=== PATIENT | male | born 1980 | race Asian ===

== ENCOUNTER 2022-09-19 07:24 | Emergency (ER) | payer OTHER, SELFPAY ==
[2022-09-19 07:29] VITALS: BP 177/106; PULSE 100; PULSE 101; RESP 22; TEMP 36.7; O2SAT 98
[2022-09-19 07:30] VITALS: PULSE 100; O2SAT 98
--- NOTE | 2022-09-19 07:51 | ED_ITS ---
HPI - Male Genitourinary General Chief complaint: Abdominal Pain Stated complaint: possible kidney stone Time Seen by Provider: 09/19/22 07:30 Source: patient Mode of arrival: Ambulatory Limitations: no limitations History of Present Illness HPI Narrative: This is a 41-year-old male with complaint of hematuria and dysuria without any discharge starting earlier in the week, this has improved but he is had some per sistent suprapubic sense of urgency. This morning he woke up his 1st urination of the morning was normal then he noticed some right flank pain that had resolved and then returned and had bloody urine. Had some mild dysuria, patient denies any fever or chills. No chest pain or shortness of breath, no nausea or vomiting. No issues with diarrhea or constipation. He states flank pain did not radiate to the front. No testicular pain. Patient has had a prior kidney stone in the past he states this feels similar. Patient is on lisinopril and hydrochlorothiazide for hypertension, no other daily medications. No prior surgeries. No known drug allergies. Patient denies risk for sexually bravo smitted disease. Related Data Previous Rx's Medication Instructions Recorded hydrochlorothiazide 25 mg tablet 25 mg PO DAILY #90 tabs 09/18/22 lisinopril 20 mg tablet 20 mg PO DAILY #90 tabs 09/18/22 meloxicam 7.5 mg tablet 7.5 mg PO BID PRN pain #14 tabs 09/19/22 nitrofurantoin 100 mg PO Q12H 7 days #14 caps 09/19/22 monohydrate/macrocrystals 100 mg capsule (Macrobid) oxycodone 5 mg tablet 5 mg PO Q6H PRN pain #10 tabs 09/19/22 tamsulosin 0.4 mg capsule (Flomax) 0.4 mg PO DAILY #7 caps 09/19/22 Allergies Allergy/AdvReac Type Severity Reaction Status Date / Time No Known Drug Allergies Allergy Unverified 09/18/22 07:57 Review of Systems Review of Systems ROS Unobtainable: All systems reviewed & are unremarkable except as noted in HPI and below Patient History Medical History Benign essential HTN Obesity Exam Narrative Exam Narrative: GENERAL: Alert and oriented x three, obese male in mild distress patient initially states pain was resolved and then started to have some increasing pain in the right flank during our exam. HEENT: Head normocephalic, atraumatic, EOMI, pupils reactive, face symmetric, moist mucous membranes NECK: Supple, full range of motion CARDIOVASCULAR: Regular rate and rhythm without murmurs, rubs or gallops. RESPIRATORY: Breath sounds equal bilaterally, no wheezes rales or rhonchi. ABDOMEN: Soft, nontender. Normoactive bowel sounds all 4 quadrants. No guarding or rebound, rigidity, no mass : No CVA tenderness. Male: normal external examination, no penile discharge or lesions, testicles non-tender, no inguinal hernias noted. EXTREMITIES: Normal range of motion, no clubbing or edema. Neurovascularly intact NEUROLOGICAL: Cranial nerves II through XII grossly intact. Moving all extremities SKIN: Warm, dry, no petechiae, no rashes or lesions. Initial Vital Signs Initial Vital Signs: Vital Signs Temperature 98.1 F 09/19/22 07:29 Pulse Rate 101 H 09/19/22 07:29 Respiratory Rate 22 09/19/22 07:29 Blood Pressure 177/106 H 09/19/22 07:29 Pulse Oximetry 98 09/19/22 07:29 Oxygen Delivery Method 09/19/22 07:29 Course Orders Ordered: Discontinued Medications Ketorolac Tromethamine (Ketorolac 30 Mg/Ml Vial) 15 mg IV NOW ONE Stop: 09/19/22 08:03 Last Admin: 09/19/22 08:09 Dose: 15 mg Documented By: ARNALDO Nitrofurantoin Macrocrystals (Nitrofurantoin Er 100 Mg Capsule) 100 mg PO NOW ONE Stop: 09/19/22 09:21 Last Admin: 09/19/22 09:52 Dose: 100 mg Documented By: ARNALDO Tamsulosin HCl (Tamsulosin 0.4 Mg Capsule) 0.4 mg PO NOW ONE Stop: 09/19/22 09:21 Last Admin: 09/19/22 09:52 Dose: 0.4 mg Documented By: ARNALDO Vital Signs Vital signs: Vital Signs - 8 hr 09/19/22 07:29 09/19/22 07:29 09/19/22 07:29 Temperature 98.1 F Pulse Rate 101 H 100 H Respiratory Rate 22 Blood Pressure 177/106 H 177/106 H Pulse Oximetry 98 98 Oxygen Delivery Method Room Air 09/19/22 07:30 Temperature Pulse Rate 100 H Respiratory Rate Blood Pressure Pulse Oximetry 98 Oxygen Delivery Method MDM - Male Genitourinary Lab Data Result diagrams: 09/19/22 07:50 09/19/22 07:50 Labs: Lab Results 09/19/22 09/19/22 09/19/22 Range/Units 07:50 07:50 07:59 WBC 11.3 H (4.5-11.0) X10^3/uL RBC 4.99 (4.5-5.9) X10^6/uL Hgb 15.4 (13.5-17.5) g/dL Hct 43.6 (41-53) % MCV 87.4 (80-100) fL MCH 30.9 (26-34) PG MCHC 35.4 (30-36) % RDW 13.4 (11.6-14.8) % Plt Count 419 H (150-400) X10^3/uL Neut % (Auto) 77.1 H (50-75) % Lymph % (Auto) 15.2 L (25-40) % Camp % (Auto) 6.0 (3-14) % Eos % (Auto) 0.7 L (2-4) % Baso % (Auto) 1.0 (0-2) % Neut # (Auto) 8700 H (4316-2616) /uL Lymph # (Auto) 1700 (0067-3798) /uL Camp # (Auto) 700 (0-900) /uL Eos # (Auto) 100 (0-450) /uL Baso # (Auto) 100 (0-100) /uL Sodium 137 (137-145) mmol/L Potassium 3.5 (3.4-5.1) mmol/L Chloride 99 (98-107) mmol/L Carbon Dioxide 27 (22-32) mmol/L BUN 14 (9-20) mg/dL Creatinine 0.95 (0.66-1.25) mg/dL Estimated GFR > 60 (>60) mL/min BUN/Creatinine Ratio 14.7 (6-22) Glucose 144 H (70-100) mg/dL Calcium 9.1 (8.4-10.2) mg/dL Total Bilirubin 0.9 (0.2-1.3) mg/dL AST 26 (17-59) IU/L ALT 27 (<50) IU/L Alkaline Phosphatase 141 H (38-126) U/L Total Protein 8.2 (6.3-8.2) g/dL Albumin 4.6 (3.5-5.0) g/dL Globulin 3.6 (1.7-4.1) g/dL Albumin/Globulin Ratio 1.3 (1.0-2.8) Lipase 98 (23-300) U/L Urine Color Red Urine Appearance Clear Urine pH 6.5 (4.5-8.0) Ur Specific [place] <=1.005 (1.000-1.035) Urine Protein 2+ H (Negative) Urine Glucose (UA) Negative (Negative) g/dL Urine Ketones Negative (NEGATIVE) Urine Occult Blood 3+ H (Negative) Urine Nitrate Negative (Negative) Urine Bilirubin Negative (NEGATIVE) Urine Urobilinogen 0.2 (0.2) E.U./dL Ur Leukocyte Esterase Trace H (NEGATIVE) Urine RBC 30-100/hpf H (0-5/HPF) Urine WBC 1-5/hpf (0-5/HPF) Ur Squamous Epith Cells 1-5 /hpf (0-5/HPF) Urine Bacteria None seen (None) Ur Culture Indicated? Specimen cultured Imaging Data renal US: Radiologist's Impression: Close Renal Ultrasound (Signed) Nora Mcclellanah - 09/19/22 Launch?[place] [address] Ultrasound Report Signed Patient: King Bah MR#: [id number] : 1980 Acct:[id number] Age/Sex: 41 / M Date of Service: 09/19/22 Loc: ED Accession Number: [id number] ?? Procedure: US renal complete Ordering Provider: Aminta Moralez D.O. PROCEDURE:? US RENAL COMPLETE ? INDICATIONS:? RIGHT FLANK PAIN. HEMATURIA AND DYSURIA ? TECHNIQUE:? Real-time scanning was performed of the kidneys and bladder, with image documentation.? ? COMPARISON:? None. ? FINDINGS:? ? Kidneys:? Kidneys are normal in size.? Right kidney measures 11.2 cm long; left kidney measures 10.5 cm long.? Right renal cortical thickness is 2.0 cm; left renal cor tical thickness is 1.9 cm.? Renal cortical echotexture is normal.? There is mild to moderate right hydronephrosis.? No left hydronephrosis.? No nephrolithiasis. ? Bladder:? Pre-void bladder volume is 111 mL.? Post-void residual is 5 mL.? Pre- void images demonstrate no intraluminal masses or stones.? On pre-void images, bilateral ureteral jets are noted with color Doppler interrogation.? (Of note, ureteral jets may not be detectable in up to 25% of cases due to insufficient differences in specific gravity between ureteral and bladder urine).? ? Miscellaneous:? No free pelvic fluid.? ? IMPRESSION:? Mild to moderate right hydronephrosis.? No renal calculi visualized. ? ? Dictated by: Natasha Mcclellan M.D. on 09/19/2022 at 9:01 ? ? Approved by: Natasha Mcclellan M.D. on 09/19/2022 at 9:02?? MDM Narrative Medical decision making narrative: This is a 41-year-old male with history of hypertension and prior kidney stones with hematuria, dysuria and right flank pain, suspect more kidney stone but UTI as on differential. Patient suspected kidney stone, patient has some right hydro no stone clearly visualized on ultrasound but not atypical. Patient's urine shows leuks but no white cells. Patient renal function, electrolytes are appropriate. Patient's pain improved with Toradol though not completely gone. He defers anything additional. Discussed would treat for UTI and stone. Patient started antibiotics, Flomax, medication for pain control. We discussed return precautions. Discussed we did not do CT today because of radiation risks but if he is worsening to return. Also discussed that if all symptoms resolve h e can stop all the medications except he should finish the antibiotics. Discharge Plan Departure Patient Disposition: Home Clinical Impression: Kidney stone on right side Instructions: DI for Kidney Stones Activity Restrictions/Additional Instructions: Follow-up with your physician for recheck. If symptoms are persisting referral for Urology is also included. You may have possibly a urinary infection I would cover you with antibiotics but suspect majority of your symptoms are from a kidney stone. Take Flomax once daily until gone Take antibiotics until completely finished. You may take meloxicam 1 tablet every 12 hours for pain. This medication is similar to ibuprofen so do not take other NSAIDs with it. You can also take Tylenol with this medicine up to a 1000 mg every 6 hours You may take 1 or 2 tablets of oxycodone every 6 hours as needed with meloxicam and ibuprofen if needed for pain management. [facility] [place]. Please return for fevers, increasing flank pain, persistent vomiting, inability urinate, black or bloody stools or other new or concerning symptoms. Prescriptions: New meloxicam 7.5 mg tablet 7.5 mg PO BID PRN (Reason: pain) Qty: 14 0RF tamsulosin [Flomax] 0.4 mg capsule 0.4 mg PO DAILY Qty: 7 0RF oxycodone 5 mg tablet 5 mg PO Q6H PRN (Reason: pain) Qty: 10 0RF nitrofurantoin monohyd/m-cryst [Macrobid] 100 mg capsule 100 mg PO Q12H 7 Days Qty: 14 0RF Rx Instructions: must administer with a meal/food No Action lisinopril 20 mg tablet 20 mg PO DAILY Qty: 90 3RF hydrochlorothiazide 25 mg tablet 25 mg PO DAILY Qty: 90 3RF Referrals: Kin Maloney DO [Primary Care Provider] - Ladan Otero MD [Physician] - Visit Report Forms: Patient Portal/API
[2022-09-19 07:53] LABS: Add Manual Diff / Slide Review NO; Basophils Absolute Auto 100 /uL (0-100); Eosinophils Absolute Auto 100 /uL (0-450); Eosinophils Percent Auto 0.7 % (2-4); Hematocrit 43.6 % (41-53); Hemoglobin 15.4 g/dL (13.5-17.5); Lymphocytes Absolute Auto 1700 /uL (1100-4500); Lymphocytes Percent Auto 15.2 % (25-40); Mean Corpuscular HGB Conc 35.4 % (30-36); Mean Corpuscular Hemoglobin 30.9 PG (26-34); Mean Corpuscular Volume 87.4 fL (80-100); Monocytes Absolute Auto 700 /uL (0-900); Neutrophils Absolute Auto 8700 /uL (1500-7000); Neutrophils Percent Auto 77.1 % (50-75); Platelet Count 419 X10^3/uL (150-400); Red Blood Cell Count 4.99 X10^6/uL (4.5-5.9); Red Cell Distribution Width 13.4 % (11.6-14.8); White Blood Cell Count 11.3 X10^3/uL (4.5-11.0)
[2022-09-19 08:02] LABS: Appearance Urine UA CLEAR; Bilirubin Urine UA NEGATIVE (NEGATIVE); Color Urine UA RED; Glucose Urine UA NEGATIVE (Negative); Ketones Urine UA NEGATIVE (NEGATIVE); Leukocyte Esterase Urine UA TRACE (NEGATIVE); Nitrite Urine UA NEGATIVE (Negative); Occult Blood Urine UA 3+ (Negative); Protein Urine UA 2+ (Negative); Specific Gravity Urine UA <=1.005 (1.000-1.035); Urobilinogen Urine UA 0.2 E.U./dL (0.2); pH Urine UA 6.5 (4.5-8.0)
--- NOTE | 2022-09-19 08:02 | DI.US.S_ITS ---
PROCEDURE: US RENAL COMPLETE INDICATIONS: RIGHT FLANK PAIN. HEMATURIA AND DYSURIA TECHNIQUE: Real-time scanning was performed of the kidneys and bladder, with image documentation. COMPARISON: None. FINDINGS: Kidneys: Kidneys are normal in size. Right kidney measures 11.2 cm long; left kidney measures 10.5 cm long. Right renal cortical thickness is 2.0 cm; left renal cortical thickness is 1.9 cm. Renal cortical echotexture is normal. There is mild to moderate right hydronephrosis. No left hydronephrosis. No nephrolithiasis. Bladder: Pre-void bladder volume is 111 mL. Post-void residual is 5 mL. Pre-void images demonstrate no intraluminal masses or stones. On pre-void images, bilateral ureteral jets are noted with color Doppler interrogation. (Of note, ureteral jets may not be detectable in up to 25% of cases due to insufficient differences in specific gravity between ureteral and bladder urine). Miscellaneous: No free pelvic fluid. IMPRESSION: Mild to moderate right hydronephrosis. No renal calculi visualized. Dictated by: Natasha Mcclellan M.D. on 09/19/2022 at 9:01 Approved by: Natasha Mcclellan M.D. on 09/19/2022 at 9:02
[2022-09-19 08:04] LABS: Alanine Aminotransferase 27 IU/L (<50); Albumin 4.6 g/dL (3.5-5.0); Albumin Globulin Ratio 1.3 (1.0-2.8); Alkaline Phosphatase 141 U/L (38-126); Aspartate Aminotransferase 26 IU/L (17-59); BUN Creatinine Ratio 14.7 (6-22); Bilirubin Total 0.9 mg/dL (0.2-1.3); Blood Urea Nitrogen 14 mg/dL (9-20); Calcium 9.1 mg/dL (8.4-10.2); Carbon Dioxide 27 mmol/L (22-32); Chloride 99 mmol/L (98-107); Estimated Glomerular Filt Rate > 60 mL/min (>60); Globulin 3.6 g/dL (1.7-4.1); Glucose 144 mg/dL (70-100); HEMOLYSIS < 15 (0-50); Lipase 98 U/L (23-300); Potassium 3.5 mmol/L (3.4-5.1); Sodium 137 mmol/L (137-145); Total Protein 8.2 g/dL (6.3-8.2)
[2022-09-19 08:07] LABS: Bacteria Urine None Seen; Culture Indicated Urine Specimen Cultured; RBC Urine 30-100/HPF (0-5/HPF); Squamous Epithelial Cell Urine 1-5 /HPF (0-5/HPF); WBC Urine 1-5/HPF (0-5/HPF)
[2022-09-19] MEDS: KETOROLAC 30 MG/ML VIAL 15 MG IV (08:09)
[2022-09-19] MEDS: TAMSULOSIN 0.4 MG CAPSULE PO (09:52)
[2022-09-19] MEDS: NITROFURANTOIN ER 100 MG CAPSULE PO (09:52)
[2022-09-19 09:53] VITALS: BP 169/88; PULSE 81; RESP 20; O2SAT 97
== END 2022-09-19 09:53 | disposition home or self-care (01) ==
PROVIDERS: Emergency Provider Emergency Medicine; PCP Family Medicine
DX: N20.0 Calculus of kidney (principal); Z87.442 Personal history of urinary calculi
CPT/HCPCS: 76770; 80053; 81001; 83690; 85025; 87086; 96374; 99284; J1885

== ENCOUNTER → 2022-09-20 16:57 | Outpatient (CLI) | payer OTHER, SELFPAY ==
[2022-09-20 17:53] LABS: Cholesterol 192 mg/dL (140-199); HDL Cholesterol 29 mg/dL (40-60); LDL Cholesterol Calculated 128 mg/dL (<100); Triglycerides 173 mg/dL (35-150)
[2022-09-20 18:24] LABS: Hemoglobin A1C% w Est Avg Glu 5.7 % (4.0-6.0)
== END ==
PROVIDERS: PCP Family Medicine; Visit Provider Family Medicine
DX: E66.9 Obesity, unspecified (principal); I10 Essential (primary) hypertension; Z68.39 Body mass index [BMI] 39.0-39.9, adult
CPT/HCPCS: 80061; 83036

== ENCOUNTER → 2023-01-12 14:42 | Outpatient (CLI) | payer OTHER, SELFPAY | PROVIDERS: PCP Family Medicine; Visit Provider Family Medicine | DX: R31.9 Hematuria, unspecified (principal) | CPT/HCPCS: 87086 ==

== ENCOUNTER → 2023-01-17 14:05 | Outpatient (CLI) | payer OTHER, SELFPAY ==
--- NOTE | 2023-01-17 14:06 | DI.CT.S_ITS ---
PROCEDURE: CT KIDNEY URETER BLADDER (KUB) INDICATIONS: Right flank pain, recurrent kidney stone TECHNIQUE: Axial sections were acquired from the lung bases to the pubic symphysis. Coronal and sagittal reformats were performed. For radiation dose reduction, the following was used: automated exposure control, adjustment of mA and/or kV according to patient size. COMPARISON: [facility], , US RENAL COMPLETE, 09/19/2022, 8:11. FINDINGS: Image quality: Excellent. Lung bases: Unremarkable. Heart: No significant findings. URINARY: Right Kidney: There is a nonobstructing 6 mm stone measuring 450 Hounsfield units. No hydronephrosis is seen. Right Ureter: No hydroureter. Left Kidney: No stones or hydronephrosis. Left Ureter: No hydroureter. Bladder: Normal wall thickness. No stones. ABDOMEN: Liver: Unremarkable. Gallbladder: Unremarkable. Biliary ducts: Unremarkable. Pancreas: Unremarkable. Spleen: Unremarkable. Adrenal Glands: Unremarkable. Stomach and Bowel: Stomach, small bowel loops, and colon are unremarkable. A normal appendix is incidentally noted. Minimal distal colonic diverticulosis is seen, without findings of active diverticulitis. Peritoneum: No abnormal intraperitoneal fluid. No free air. Ventral Wall: No hernia. Abdominal Nodes: No enlarged retroperitoneal or mesenteric lymph nodes. Vessels: Aorta and inferior vena cava are normal in size. PELVIS: Pelvic Organs: Unremarkable. Pelvic Nodes: Unremarkable. Miscellaneous: No inguinal hernias are seen. Bones: Unremarkable. IMPRESSION: Nonobstructing 6 mm right-sided kidney stone. No findings of hydronephrosis or obstructive uropathy can be seen. Additional findings: Minimal distal colonic diverticulosis, without active diverticulitis Normal appendix Dictated by: Mehrdad Obrien M.D. on 01/17/2023 at 13:42 Approved by: Mehrdad Obrien M.D. on 01/17/2023 at 13:43
== END ==
PROVIDERS: PCP Family Medicine; Referring Provider Family Medicine; Visit Provider Family Medicine
DX: N20.0 Calculus of kidney (principal)
CPT/HCPCS: 74176

== ENCOUNTER → 2023-01-30 12:27 | Outpatient (CLI) | payer OTHER, SELFPAY ==
--- NOTE | 2023-01-30 12:31 | DI.RAD.S_ITS ---
PROCEDURE: XR KUB INDICATIONS: calculus of kidney TECHNIQUE: One view of the abdomen acquired. COMPARISON: [facility], CT, CT KIDNEY URETER BLADDER (KUB), 01/17/2023, 14:06. FINDINGS: 7 mm calcification projects over the expected position of the right renal pelvis/proximal ureter. No definite left renal stone identified radiographically. No pathologically dilated gas-filled loops of bowel. IMPRESSION: 7 mm calcification projects over the expected position of the right renal pelvis/proximal ureter. Dictated by: Henry Ram M.D. on 01/31/2023 at 13:09 Approved by: Henry Ram M.D. on 01/31/2023 at 13:12
== END ==
PROVIDERS: PCP Family Medicine; Referring Provider Specialist; Visit Provider Specialist
DX: N20.0 Calculus of kidney (principal)
CPT/HCPCS: 74018

== ENCOUNTER 2023-02-16 09:12 | Day surgery (SDC) | payer OTHER, SELFPAY ==
[2023-02-08 12:21] VITALS: BMI 38.5
--- NOTE | 2023-02-16 | DI.RAD.S_ITS ---
PROCEDURE: XR KUB INDICATIONS: Right UPJ calculus TECHNIQUE: One view of the abdomen acquired. COMPARISON: [facility], CR, XR KUB, 01/30/2023, 12:28. [facility], CT, CT KIDNEY URETER BLADDER (KUB), 01/17/2023, 14:06. FINDINGS: Surgical changes and devices: None. Bowel: Bowel gas pattern is normal. Soft tissues: Overlapping stool partially obscures evaluation. No definite calcified stone is identified. Bones: No suspicious bony lesions. IMPRESSION: No definite calcified nephrolith. Overlapping stool partially obscures evaluation. Dictated by: Cruz Hermosillo M.D. on 02/16/2023 at 9:38 Approved by: Cruz Hermosillo M.D. on 02/16/2023 at 9:40
[2023-02-16 09:44] VITALS: BP 147/93; PULSE 92; RESP 12; TEMP 36.6; O2SAT 100; BMI 35.5
--- NOTE | 2023-02-16 10:26 | PM.PREOP ---
Pre-operative Note COVID-19 Criteria for continued procedure: Expected advancement of disease process, Possibility delay results in more complex future surgery or treatment, Continuing or worsening of significant or severe pain, Deterioration of the patient's condition or overall health, Delay expected to result in less-positive ultimate med/surg outcome and Non-surgical alternatives not available or appropriate per current SOC Interval Note History & Physical reviewed/Exam performed by Physician: Yes Changes to H&P: No
--- NOTE | 2023-02-16 11:02 | SUR.OPER ---
Supine on padded ESWL bed, head on pillow, arms at sides on gel pads, legs uncrossed.
[2023-02-16] MEDS: CEFAZOLIN 2 GM/100 ML PREMIX 100 ML IV (11:05)
--- NOTE | 2023-02-16 11:53 | P.OP_ITS ---
Operative Date/Time/Diagnoses Date of procedure: 02/16/23 Time of procedure: 11:45 Pre-op diagnosis: 1. 7 mm right renal calculus. 2. Intermittent right renal colic and hematuria. Post-op diagnosis: same Procedure & Clinicians Procedure: 1. Right extracorporeal shockwave lithotripsy (7.0 maximal power level x2 1500 shocks). Same procedure as scheduled: Yes Indications: 1. 7 mm right renal calculus and intermittently migrating to right ureteropelvic junction. 2. Intermittent right renal colic and gross hematuria. Surgeon: Ladan Otero Click Yes if Unassisted: No Anesthesia Type: General Operative Notes Findings: The index calculus has now repositioned itself into the left lower pole collecting system verses most recent KUB image the demonstrated the stone in the vicinity of the right UPJ/proximal ureter. Closure Type: not applicable Estimated Blood Loss (mL): 0 Blood products transfused: none Procedure in detail: The patient was positioned in supine and the above-described calculus was localized in the X, Y, and Z plane. Lithotripsy was initiated at minimal power level for 200 shocks. A 2 minute pause was then conducted. Lithotripsy was then resumed and the power level was gradually increased to a maximal 7.0. The stone and its fragments were relocalized as needed throughout the case. A total of 2500 shocks were delivered to the stone with resultant good evidence of stone fragmentation. Procedure was halted. The patient was then awakened, [facility], and then transported recovery awake and in stable condition. Complications: none Post-operative Condition: stable Disposition: PACU Plan for aftercare: Discharge home.
[2023-02-16 11:58] VITALS: BP 139/95; PULSE 114; RESP 11; TEMP 36.2; O2SAT 99
[2023-02-16 12:02] VITALS: BP 155/107; PULSE 109; RESP 11; O2SAT 98
[2023-02-16] MEDS: ONDANSETRON 4 MG/2 ML INJ IV (12:02)
[2023-02-16] MEDS: OXYCODONE IR 5 MG TABLET PO (12:02)
[2023-02-16] MEDS: fentaNYL 100 MCG/2 ML INJ IV (12:03)
[2023-02-16 12:14] VITALS: BP 166/93; PULSE 103; RESP 13; O2SAT 97
[2023-02-16] MEDS: LACTATED RINGERS 1,000 ML 21 ML IV (12:16)
== END 2023-02-16 12:25 | disposition home or self-care (01) ==
PROVIDERS: PCP Family Medicine; Referring Provider Specialist; Visit Provider Specialist
PROC: (CPT 50590; principal; 2023-02-16 10:45)
DX: N20.0 Calculus of kidney (principal)
CPT/HCPCS: 50590; 74018; J0330; J0690; J2250; J2405; J3010

== ENCOUNTER → 2023-03-13 06:55 | Outpatient (CLI) | payer OTHER, SELFPAY ==
[2023-03-13 08:39] LABS: Appearance Urine UA CLEAR; Bilirubin Urine UA NEGATIVE (NEGATIVE); Color Urine UA YELLOW; Glucose Urine UA NEGATIVE (Negative); Ketones Urine UA NEGATIVE (NEGATIVE); Leukocyte Esterase Urine UA NEGATIVE (NEGATIVE); Nitrite Urine UA NEGATIVE (Negative); Occult Blood Urine UA NEGATIVE (Negative); Protein Urine UA NEGATIVE (Negative); Urobilinogen Urine UA 0.2 E.U./dL (0.2); pH Urine UA 7.5 (4.5-8.0)
[2023-03-13 08:47] LABS: BUN Creatinine Ratio 15.2 (6-22); Blood Urea Nitrogen 14 mg/dL (9-20); Calcium 9.3 mg/dL (8.4-10.2); Calcium 9.6 mg/dL (8.4-10.2); Carbon Dioxide 33 mmol/L (22-32); Chloride 96 mmol/L (98-107); Estimated Glomerular Filt Rate > 60 mL/min (>60); Glucose 112 mg/dL (70-100); HEMOLYSIS < 15 (0-50); Potassium 3.6 mmol/L (3.4-5.1); Sodium 137 mmol/L (137-145)
[2023-03-13 09:12] LABS: Bacteria Urine None Seen; Culture Indicated Urine Cult Not Indicated; RBC Urine None Seen (0-5/HPF); Squamous Epithelial Cell Urine None Seen (0-5/HPF); WBC Urine 0-1/HPF (0-5/HPF)
[2023-03-14 00:07] LABS: Labcorp Hemoglobin (Hb) A1c 5.5 % (4.8-5.6)
[2023-03-15 09:45] LABS: Parathyroid Hormone Int 31 pg/mL (15-65)
== END ==
PROVIDERS: PCP Family Medicine; Referring Provider Specialist; Visit Provider Specialist
DX: N20.0 Calculus of kidney (principal); R31.9 Hematuria, unspecified; I10 Essential (primary) hypertension
CPT/HCPCS: 36415; 80048; 81001; 82310; 83036; 83970; 84550

== ENCOUNTER → 2023-04-13 15:05 | Outpatient (CLI) | payer OTHER, SELFPAY ==
--- NOTE | 2023-04-13 15:06 | DI.RAD.S_ITS ---
PROCEDURE: XR KUB INDICATIONS: kidney calculus TECHNIQUE: One view of the abdomen acquired. COMPARISON: [facility], CR, XR KUB, 02/16/2023, 9:22. FINDINGS: Surgical changes and devices: None. Bowel: Bowel gas pattern is normal. Soft tissues: No suspicious abdominal calcifications. Visualized solid organ contours appear normal in size. Bones: No suspicious bony lesions. IMPRESSION: No definite radiopaque renal, ureteral or bladder calculi. Of note, much of the renal fossa is obscured by overlying bowel gas and stool which does limit evaluation for stones. Dictated by: Kei Posadas [facility] Interpreted: Clemencia Diaz MD on 04/13/2023 at 15:17 Transcribed by: KATHERIN on 04/13/2023 at 15:18 Approved by: Clemencia Diaz M.D. on 04/13/2023 at 16:37
== END ==
PROVIDERS: PCP Family Medicine; Referring Provider Specialist; Visit Provider Specialist
DX: N20.0 Calculus of kidney (principal)
CPT/HCPCS: 74018

== ENCOUNTER → 2023-09-11 07:34 | Outpatient (CLI) | payer OTHER, SELFPAY ==
[2023-09-11 08:35] LABS: Add Manual Diff / Slide Review NO; Basophils Absolute Auto 100 /uL (0-100); Eosinophils Absolute Auto 100 /uL (0-450); Eosinophils Percent Auto 1.3 % (2-4); Lymphocytes Absolute Auto 2100 /uL (1100-4500); Lymphocytes Percent Auto 23.8 % (25-40); Mean Corpuscular HGB Conc 35.8 % (30-36); Mean Corpuscular Volume 89.5 fL (80-100); Monocytes Absolute Auto 600 /uL (0-900); Monocytes Percent Auto 7.2 % (3-14); Neutrophils Absolute Auto 5800 /uL (1500-7000); Neutrophils Percent Auto 66.7 % (50-75); Platelet Count 389 X10^3/uL (150-400); Red Cell Distribution Width 13.5 % (11.6-14.8); White Blood Cell Count 8.7 X10^3/uL (4.5-11.0)
[2023-09-11 08:37] LABS: Hemoglobin 15.4 g/dL (13.5-17.5)
[2023-09-11 08:51] LABS: Alanine Aminotransferase 31 IU/L (<50); Albumin 4.3 g/dL (3.5-5.0); Albumin Globulin Ratio 1.4 (1.0-2.8); Alkaline Phosphatase 83 U/L (38-126); Aspartate Aminotransferase 57 IU/L (17-59); BUN Creatinine Ratio 12.2 (6-22); Bilirubin Total 0.6 mg/dL (0.2-1.3); Blood Urea Nitrogen 11 mg/dL (9-20); Calcium 9.6 mg/dL (8.4-10.2); Carbon Dioxide 31 mmol/L (22-32); Chloride 97 mmol/L (98-107); Cholesterol 208 mg/dL (140-199); Estimated Glomerular Filt Rate > 60 mL/min (>60); Glucose 102 mg/dL (70-100); HDL Cholesterol 39 mg/dL (40-60); HEMOLYSIS < 15 (0-50); LDL Cholesterol Calculated 140 mg/dL (<100); Potassium 4.2 mmol/L (3.4-5.1); Sodium 136 mmol/L (137-145); Total Protein 7.3 g/dL (6.3-8.2); Triglycerides 145 mg/dL (35-150); Uric Acid 8.3 mg/dL (3.5-8.5)
== END ==
PROVIDERS: PCP Family Medicine; Referring Provider Family Medicine; Visit Provider Family Medicine
DX: E78.2 Mixed hyperlipidemia (principal); R82.998 Other abnormal findings in urine; I10 Essential (primary) hypertension; R73.01 Impaired fasting glucose; R79.89 Other specified abnormal findings of blood chemistry
CPT/HCPCS: 36415; 80053; 80061; 83036; 84550; 85025

== ENCOUNTER → 2025-04-30 06:44 | Outpatient (CLI) | payer OTHER, SELFPAY ==
[2025-04-30 08:13] LABS: Alanine Aminotransferase 17 IU/L (<50); Albumin 4.6 g/dL (3.5-5.0); Alkaline Phosphatase 83 U/L (38-126); Aspartate Aminotransferase 23 IU/L (17-59); BUN Creatinine Ratio 21.1 (6-22); Bilirubin Total 0.8 mg/dL (0.2-1.3); Blood Urea Nitrogen 19 mg/dL (9-20); Calcium 9.4 mg/dL (8.4-10.2); Carbon Dioxide 25 mmol/L (22-32); Chloride 106 mmol/L (98-107); Cholesterol 221 mg/dL (140-199); Estimated Glomerular Filt Rate > 60 mL/min (>60); Globulin 2.3 g/dL (1.7-4.1); Glucose 86 mg/dL (70-99); HDL Cholesterol 53 mg/dL (40-60); HEMOLYSIS < 15 (0-50); LDL Cholesterol Calculated 152 mg/dL (<100); Potassium 4.5 mmol/L (3.4-5.1); Sodium 140 mmol/L (137-145); Total Protein 6.9 g/dL (6.3-8.2); Triglycerides 81 mg/dL (35-150)
[2025-04-30 08:23] LABS: Hemoglobin A1C% w Est Avg Glu 4.7 % (4.0-6.0)
[2025-04-30 09:21] LABS: HIV 1 & 2 Ab/Ag 4th Gen Combo NEGATIVE (NEGATIVE); Hep C Virus Ab w/Reflex Quant NEGATIVE s/c (NEGATIVE)
== END ==
PROVIDERS: PCP Family Medicine; Referring Provider Family Medicine; Visit Provider Family Medicine
DX: E78.2 Mixed hyperlipidemia (principal); I10 Essential (primary) hypertension; R73.01 Impaired fasting glucose
CPT/HCPCS: 36415; 80053; 80061; 83036; 86803; 87389